=== PATIENT | female | born 1935 | race Caucasian/White ===

== ENCOUNTER → 2016-08-15 | Outpatient (CLI) | payer OTHER, MEDICARE ==
[~2016-08-15] MED LIST: ADVAIR 250-501 EACH INH; ALENDRONATE SOD70 MG PO; ALLER-EASE180 MG PO; ALTACE10 M1 PO; ALTACE10 MG PO; AMBIEN 5 MG TABL5 M1 PO; ASPIRIN325 PO; BENICAR20 MG PO; BYSTOLIC 5 MG5 M1 PO; CALCIUM 500 +1 EAC5 PO; CALCIUM 600 +1 EAC1 PO; CLARITIN10 MG PO; FISH OIL 1,0001 EAC5 PO; FISH OIL 1,001000 M2 PO; FLONASE 0.05%50 MCG NASAL; FOSAMAX 70 MG T70 M1 PO; GENTEAL GEL DRO15 ML OPHTHALMIC; HYDROCODONE-AP1 EAC6 PO; KLOR-CON 1010 MEQ PO; LOPRESSOR 50 MG50 M1 PO; LOPRESSOR100 MG PO; LORTAB 5 MG/5001 TA1 PO; LOVASTAT40 PO; MULTIVITAMINS PO; NEURONTIN 300300 M1 PO; NIASPAN 500 MG500 M1 PO; NORVASC 5 MG TAB5 MG PO; NORVASC5 MG PO; OCUVITE TABLET1 EAC1 PO; PLAVIX 75 MG TA75 M1 PO; PROAIR HFA8.5 GM INH; SPIRIVA INH; TOPROL XL50 MG PO; TRIAMTERENE-HC1 EAC2 PO; TUMS PO; VALIUM5 MG PO; VITAMIN D1000 UNI1 PO; ZANTAC 150MG T150 M1 PO
== END ==
LOC: ULTRA 09:08
DX: E04.1 Nontoxic single thyroid nodule (principal)

== ENCOUNTER → 2017-04-21 | Outpatient (CLI) | payer OTHER, MEDICARE | LOC: RAD 11:07 | DX: M25.551 Pain in right hip (principal); M47.896 Other spondylosis, lumbar region; E04.1 Nontoxic single thyroid nodule ==

== ENCOUNTER → 2018-01-06 | Outpatient (CLI) | payer OTHER, MEDICARE | LOC: ULTRA 10:12 | DX: E04.2 Nontoxic multinodular goiter (principal) ==

== ENCOUNTER → 2018-02-04 | Outpatient (CLI) | payer OTHER, MEDICARE | LOC: MRI 10:52 | DX: M47.22 Other spondylosis with radiculopathy, cervical region (principal); M47.26 Other spondylosis with radiculopathy, lumbar region; M25.78 Osteophyte, vertebrae; M50.122 Cervical disc disorder at C5-C6 level with radiculopathy; M41.83 Other forms of scoliosis, cervicothoracic region; M48.02 Spinal stenosis, cervical region; M71.312 Other bursal cyst, left shoulder ==

== ENCOUNTER → 2018-12-03 | Outpatient (CLI) | payer OTHER, MEDICARE ==
[~2018-12-03] VITALS: Ht 160 cm; Wt 65.2 kg
[~2018-12-03] MED LIST changes: +BENICAR40 MG PO; +BYSTOLIC10 MG PO; +CENTRUM SILVER1 EAC4 PO; +EDARBYCLOR 40-1 EAC1 PO; +FISH OIL 1,0001 EAC9 PO; +FISH OIL 1,2001 EAC4 PO; +FLUTICASONE-SA1 EAC4 INH; +HYDROCODON-ACE1 EAC7 PO; +LOVASTATIN40 MG PO; +OCUVITE ADULT1 EAC1 PO; +PRILOSEC OTC20 MG PO; +SINGULAIR 10 MG10 M1 PO; +VENTOLIN HFA 1818 GM INH
[2018-12-03 14:10] VITALS: BP 181/80
--- NOTE | 2018-12-03 14:31 | NUR ---
Pain Clinic Assessment: 1. History of Osteoarthritis: Left Lower Extremity Right Lower Extremity History of Rheumatoid Arthritis: Not Applicable 2. Height: 5 ft. 3 in. 160.0 cm. Weight: 143.8 lb. oz. 65.227 kg. Patient's BMI: 25.5 3. Vital Signs: BP: 181/80 Pulse: 74 Resp: 16 Temp: 02 Sat: 92 ECG Mon: 4. Pain Intensity: 2-3 5. Fall Risk: Dizziness: N Needs help standing or walking: N Fallen in the last 3 months: N Fall risk comments: 6. Patient on Blood Thinner: None 7. History of Hypertension: Y 8. Opioid Therapy greater than 6 weeks: N Opiate Contract Signed: 08/17/15 9. Risk Assessment Tool Provided: LOW RISK 0/0 10. Functional Assessment Tool: 11. Recreational Drug Use: Never Drug Type: Tobacco Use: Former Smoker Tobacco Type: Cigarettes Amount or Packs/day: 1 How Many Years: 50 Alcohol Use: Yes Frequency: Weekly Quant: 2
--- NOTE | 2018-12-15 09:44 | HPC ---
[facility] [address] [place] [address] PAIN MANAGEMENT CONSULTATION Name: ANKITJOHANNE Panda Room #: REG OSCARPanda Reyes#: [id number] Admission: 12/03/18 Attend Phys: Astrid Snowden MD Discharge: Date of : 34 Report #: [id number] THIS REPORT FOR: //name// CC: Astrid Goins DATE OF SERVICE: 12/03/2018 CHIEF COMPLAINT: Back pain with pain that radiates down into the groin area on the left as well as the right. HISTORY: The patient is an 83-year-old female, who has been referred to the pain clinic for evaluation of pain control. The patient has had back surgery. She had surgery in 2006. She continues to have pain, which has been problematic. She has pain in her hips. She states that she was evaluated by the orthopedic surgeon, Dr. Benitez. Injections in the hip areas were performed. It did not appear that her pain is emanating from her hips. She has used gabapentin in the past. She noticed that this did help somewhat with some tingling in her feet, but did not significantly change the pain she has been having in the pelvis area in the low back. She has been told in the past that she had spinal stenosis. She has undergone physical therapy. She has undergone water exercises as well as land exercises. She finds that the water exercise has afforded her the most benefit. She is able to move better in the water than she does on the land. She has undergone floor exercises. This did increase some of the pain and discomfort she has been having in her left leg. She has some perception of some weakness. She notes that the pain is improved when she sits down. Prolonged walking can be problematic. She describes it as intermittent, aching, and rates it as a 2-3 at this point. It can rise to the level of 7-8 depending on her level of activity. PAST MEDICAL HISTORY: Coronary artery disease, emphysema, diabetes mellitus, hypertension, hyperlipidemia, peripheral vascular disease versus stasis dermatitis, arthritis, bundle branch block, left; and thyroid mass. PAST SURGICAL HISTORY: Cardiac stent in 2000, 2003, and 2007; stents for iliac, bilateral in 2000; cholecystectomy in , appendectomy in 1962, tonsillectomy/adenoidectomy in 5, RCFA, SFA, and profunda endarterectomy with patch, angioplasty in 12/22/2013, lumbar laminectomy in 2006, and right CTR in 2011. CURRENT MEDICATIONS: Azilsartan/chlorthalidone 40/25, fish oil 1000 mg, Singulair 10 mg, fluticasone/salmeterol 250/50, albuterol 2 puffs q.6 hours p.r.n., Ocuvite, Centrum Silver, magnesium, omeprazole, calcium carbonate 600 mg/vitamin D, fish oil 1200 mg b.i.d., Bystolic 10 mg, Norvasc 5 mg, potassium 10 mEq, Advair Diskus 250/50 2 puffs daily, alendronate 70 mg weekly, Spiriva HFA 2 puffs, aspirin 325 mg, Ambien 5 mg for insomnia, Zantac 150 mg b.i.d., [address] [address] PAIN MANAGEMENT CONSULTATION Name: JOHANNE PHAM Panda Room #: REG LAURA Reyes#: [id number] Admission: 12/03/18 Attend Phys: Astrid Snowden MD Discharge: Date of : 34 Report #: [id number] lovastatin 40 mg, and Flonase 0.05% nasal spray. ALLERGIES: POLLEN AND DUST. SOCIAL HISTORY: She has been retired for 14 years. REVIEW OF SYSTEMS: Generally, in good health; eye disease, wears glasses; ringing in the ears, chronic sinus problems, shortness of breath while lying flat, chronic or frequent cough, asthma/wheezing, numbness and tingling, and insomnia. PHYSICAL EXAMINATION: GENERAL: The patient is a well-developed, well-nourished white female. She appears her stated age. She is alert and oriented x 3. Her affect is appropriate. Speech is fluent. HEENT: Normocephalic, atraumatic. Extraocular eye muscles intact. The patient is wearing glasses. NECK: Without JVD. ABDOMEN: Nontender. EXTREMITIES: Upper extremity muscle strength is judged to be 4+/5 for the major muscle groups in the upper extremity. Lower extremity muscle strength is judged to be 5-/5. The patient is without significant kyphosis. The patient has pain in the lower portion of her back from approximately L1 to the sacral area, left and right. The patient has pain that radiates down into the left as well as the right groin area with prolonged standing and walking. She has some discomfort that radiates down in the area of the L2-L3 portion of her left anterior thigh. She uses her hands to go from a sitting to a standing position before starting ambulation. LABORATORY DATA: No new laboratory values are available at the time of our interview. IMPRESSION: 1. Chronic pain with history of spinal stenosis. 2. Coronary artery disease. 3. Emphysema. 4. Diabetes mellitus. 5. Hypertension. 6. Hyperlipidemia. 7. Peripheral vascular disease versus stasis dermatitis. 8. Arthritis. 9. Bundle branch block, left. 10. Thyroid mass. RECOMMENDATIONS: We have discussed the patient's condition. She states that she has used tramadol in the past and this has not been very effective. She has [facility] [address] [place] [address] PAIN MANAGEMENT CONSULTATION Name: JOHANNE PHAM I Room #: REG LAURA Lm.#: [id number] Admission: 12/03/18 Attend Phys: Astrid Snowden MD Discharge: Date of : 34 Report #: [id number] used gabapentin and noticed some improvement in the numbness and tingling in her feet, but continues to have pain and discomfort, which is limiting her ability to ambulate and walk for any distance. The patient has used hydrocodone in the past. She found that this medication was beneficial. She thinks that it might be helpful at this point. We discussed the options. The patient has undergone epidural steroid injections. At this point, she does not feel that these injections would be beneficial at this point, in the past, they have become less effective. She has undergone surgery. She is not a real candidate for surgery at this juncture. We have discussed the risks and benefits of opioid medications. They could cause problems with constipation, mental acuity, and GI upset. The patient has used hydrocodone in the past. She would like to give this medication a try. She has been unable to go on activities with her group. She has been unable to go to the theater because of limitations from her pain. She feels that a trial of the opioid medications would be beneficial and hopefully she will be able to participate in activities of daily living. She is somewhat limited in her ability to ambulate around the nursing facility. She does live in a nursing facility. She lives independently. Walking from one end of the facility to the other can be problematic and limited because of onset of her pain. Hopefully, this medication, hydrocodone 5 mg 1 p.o. up to q.i.d. have been provided. She will call us if she has any concerns. We would like to thank you for letting us to participate in her care. We hope she continues to improve. <ELECTRONICALLY SIGNED> By: Astrid Snowden MD 12/15/18 0944 1550 0248 Astrid Snowden MD /[facility]
== END ==
LOC: PAIN 06:41
DX: R10.9 Unspecified abdominal pain (principal); I25.10 Atherosclerotic heart disease of native coronary artery without angina pectoris; E11.51 Type 2 diabetes mellitus with diabetic peripheral angiopathy without gangrene; I10 Essential (primary) hypertension; E78.5 Hyperlipidemia, unspecified; J43.9 Emphysema, unspecified; M19.90 Unspecified osteoarthritis, unspecified site; Z95.818 Presence of other cardiac implants and grafts; Z90.49 Acquired absence of other specified parts of digestive tract; Z79.899 Other long term (current) drug therapy; Z79.891 Long term (current) use of opiate analgesic; Z79.82 Long term (current) use of aspirin

== ENCOUNTER → 2019-08-22 | Outpatient (CLI) | payer OTHER, MEDICARE | LOC: SJCVCIMAG 11:54 | PROVIDERS: ATTEND Internal Medicine | DX: I08.3 Combined rheumatic disorders of mitral, aortic and tricuspid valves (principal); I65.23 Occlusion and stenosis of bilateral carotid arteries; R94.31 Abnormal electrocardiogram [ECG] [EKG]; I11.9 Hypertensive heart disease without heart failure; I25.10 Atherosclerotic heart disease of native coronary artery without angina pectoris; I44.7 Left bundle-branch block, unspecified; E78.5 Hyperlipidemia, unspecified; I73.9 Peripheral vascular disease, unspecified; E11.9 Type 2 diabetes mellitus without complications; Z79.899 Other long term (current) drug therapy; Z87.891 Personal history of nicotine dependence ==

== ENCOUNTER 2019-11-30 15:59 | Inpatient (IN) | payer OTHER, MEDICARE ==
[~2019-11-30] VITALS: Ht 157.5 cm; Wt 64.4 kg
[2019-11-30 15:59] VITALS: BP 104/57
[2019-11-30 16:32] LABS: BASOPHILS 0.5 % (0.0-2.0); EOSINOPHILS 0.1 % (0.0-3.0); HEMATOCRIT 39.8 % (37.0-47.0); HEMOGLOBIN 13.9 gm/dL (12.0-15.0); MCH 30.7 pg (26.0-34.0); MCV 87.9 fL (80.0-100.0); MONOCYTES 8.6 % (1.0-8.0); PLATELET COUNT 316 thou/uL (150-400); POLYS 74.8 % (36.0-66.0); RBC 4.53 mil/uL (4.20-5.00); RDW 13.2 % (10.5-14.5); WBC 9.3 thou/uL (4.0-11.0)
[2019-11-30 16:41] LABS: CALCIUM 9.2 mg/dL (8.5-10.1); CREATININE 0.9 mg/dL (0.6-1.0); POTASSIUM 3.7 mmol/L (3.5-5.1)
[2019-12-01] VITALS (8 sets, daily range): BP systolic 12–140; BP diastolic 58–77
[2019-12-01 06:36] LABS: HEMATOCRIT 40.4 % (37.0-47.0); MCH 30.8 pg (26.0-34.0); MCHC 34.5 g/dL (28.0-37.0); MCV 89.3 fL (80.0-100.0); RBC 4.53 mil/uL (4.20-5.00); RDW 12.8 % (10.5-14.5); WBC 11.5 thou/uL (4.0-11.0)
--- NOTE | 2019-12-01 06:36 | NUR ---
PT'S DAUGHTER UPDATED ON POC.
[2019-12-01 06:51] LABS: ALBUMIN 3.6 g/dL (3.4-5.0); CALCIUM 8.5 mg/dL (8.5-10.1); CREATININE 0.7 mg/dL (0.6-1.0); PHOSPHORUS 3.7 mg/dL (2.5-4.9); POTASSIUM 3.6 mmol/L (3.5-5.1)
--- NOTE | 2019-12-01 07:37 | EKG ---
[facility] [place] [address] ELECTROCARDIOGRAM REPORT Name: JOHANNE PHAM I Room #: 170-8 ADM IN M.R.#: [id number] Admission: 11/30/19 Attend Phys: Gualberto Milian Discharge: Date of : 34 Report #: [id number] THIS REPORT FOR: cc: Heriberto Goins MD, Rene P. 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
[2019-12-01 16:18] LABS: HEMATOCRIT 38.9 % (37.0-47.0); HEMOGLOBIN 12.9 gm/dL (12.0-15.0); MCH 29.7 pg (26.0-34.0); MCHC 33.2 g/dL (28.0-37.0); MCV 89.2 fL (80.0-100.0); RBC 4.36 mil/uL (4.20-5.00); WBC 19.4 thou/uL (4.0-11.0)
[2019-12-01 16:28] LABS: CALCIUM 8.3 mg/dL (8.5-10.1); CREATININE 0.8 mg/dL (0.6-1.0); POTASSIUM 3.5 mmol/L (3.5-5.1)
--- NOTE | 2019-12-01 18:43 | NUR ---
PT ADMITTED TO ROOM 364 ABOUT 1400, PT HAS SURGRY TX SUBTROCH WITH IM NAIL FOR R FEMUR FRACTURE, PT IS A&OX3 , PT IS O2 4L/MIN/NC , PT'S VS ARE STABLE, PT'S R LE SURGICAL AREA DRESSING IS CDI , RN HAS CALLED DR TO REPORT PT'S N/V ( 2 TIME VIMIT COFFEE COLOR ) , NEW ORDER GI COSULT , NPO AND PANTOPRAZOLE 40MG IV Q12HE, PT IS CONTINUING NS @ 125ML/HR, PT HAS VOID RUINE 400ML . PT DENIES PAIN AT THIS TIME.
--- NOTE | 2019-12-01 23:15 | NUR ---
PT RESTING IN BED ALERT WATCHING TV. IVF INTACT. R HIP DRESSING DRY INTACT, ICE PACK PRN. O2 PER NC. PT PROVIDED PRN FOR PAIN AND NAUSEA RELIEF. PT CALLED HER DAUGHTER. PT PASSING GAS ABD DISTENDED BS DECREASED. EXT FEMALE CATHETER INTACT. PT ASSISTING WITH REPOSITIONING. BED ALARM ON.
[2019-12-02 00:06] VITALS: BP 98/56
--- NOTE | 2019-12-02 03:49 | NUR ---
PT NOTED TO HAVE TEMP 99. PT OFFERED FLUIDS AND DECLINED.
[2019-12-02 04:39] VITALS: BP 125/66
[2019-12-02 06:10] LABS: HEMATOCRIT 33.3 % (37.0-47.0); HEMOGLOBIN 11.6 gm/dL (12.0-15.0); MCH 30.8 pg (26.0-34.0); MCHC 34.9 g/dL (28.0-37.0); MCV 88.5 fL (80.0-100.0); RBC 3.76 mil/uL (4.20-5.00); RDW 12.9 % (10.5-14.5); WBC 7.9 thou/uL (4.0-11.0)
[2019-12-02 06:24] LABS: ALBUMIN 2.9 g/dL (3.4-5.0); CALCIUM 8.3 mg/dL (8.5-10.1); CREATININE 0.7 mg/dL (0.6-1.0); PHOSPHORUS 3.2 mg/dL (2.5-4.9); POTASSIUM 3.6 mmol/L (3.5-5.1)
[2019-12-02 09:10] VITALS: BP 94/52
--- NOTE | 2019-12-02 09:53 | O ---
[facility] [place] [address] OPERATIVE REPORT Name: JOHANNE PHAM I Room #: 364-P [facility] IN M.R.#: [id number] Admission: 11/30/19 Attend Phys: Gualberto Milian Discharge: Date of : 34 Report #: [id number] THIS REPORT FOR: cc: Heriberto Goins MD, Rene P. MD Abraham, Scott M. MD ~ CC: Gualberto Goins DATE OF SERVICE: 12/01/2019 PREOPERATIVE DIAGNOSIS: Right subtrochanteric femur fracture. POSTOPERATIVE DIAGNOSIS: Right subtrochanteric femur fracture. PROCEDURE: Treatment of right subtroch femur fracture with IM nail. SURGEON: Kenny Benitez MD. SLATE PICKER: Cammie Bender PA-C. INDICATIONS FOR SLATE PICKER: Throughout the case, extensive retraction as well as reduction of the fracture was required. This was afforded to me by my secretary administrative assistant. ANESTHESIA: General. IMPLANTS: [employer] size 11.5 x 34 InterTan nail with a size 90 proximal lock screw and a size 37.5 and 40 distal locking screws. ESTIMATED BLOOD LOSS: 25 mL. COMPLICATIONS: None. SPECIMENS: None. CONDITION UPON LEAVING THE OPERATING ROOM: Stable. INDICATIONS FOR PROCEDURE: The patient is an 84-year-old female who fell and sustained a right subtrochanteric femur fracture. After discussion with her, she elected for treatment with an IM nail. DESCRIPTION OF PROCEDURE: Risks, benefits, alternatives, complications were discussed in detail with the patient including but not limited to risk of anesthesia, risk of damage to nerves, arteries, blood vessels, risk for infection, bleeding, risk for continued hip pain, malunion, nonunion and need [facility] [address] [place] [address] OPERATIVE REPORT Name: JOHANNE PHAM I Room #: 364-P [facility] IN .R.#: [id number] Admission: 11/30/19 Attend Phys: Gualberto Milian Discharge: Date of : 34 Report #: [id number] for reoperation. Informed consent was obtained from the patient. Right hip was appropriately marked in the preoperative holding area. She was brought to the operating room and general anesthesia was induced without complication. She was then transferred to the [place] table. Right lower extremity was placed in traction, left lower extremity was scissored. Timeout was performed properly identifying the patient and procedure as well as the instrumentation and implants. All in the operating room were in agreement. A 2-inch incision proximal to the tip of greater trochanter was made with 10 blade through the skin and fascia. Threaded tip guidewire was placed on the tip of the greater trochanter and taken down to the level of the lesser trochanter under AP and lateral imaging. An entry portal reamer was used to ream the entry portal and the reduction tool was then passed down the intramedullary canal and the femur across the fracture site, which was held reduced by my secretary administrative assistant. The ball tip guidewire was then passed and the length of the nail was measured and found to be a 34. The femoral canal was then sequentially reamed up to a size 13, at which point, there was good feedback of the reamer. A size 11.5 x 34 InterTan nail was then placed down across the fracture site. While placing the nail traction was let off from the right leg and the fracture reduced very nicely. The nail was seated to the appropriate level and the threaded tip guidewire was taken up into the femoral head for placement of the cephalomedullary screw. The screw was measured and found to be a size 90. This was then ____ and a size 90 screw was placed and seated and locked from above. Outrigger was removed. Two distal locking screws were placed using a perfect afognak technique, the proximal screw was 37.5 mm and the distal screw was 40 mm. After this, final fluoroscopic images were taken to verify adequate fracture reduction and placement of hardware as was the case. The wounds were thoroughly irrigated with normal saline and closed with 2-0 Vicryl and skin hortencia. Soft dressing was applied. The patient tolerated this procedure well and went to recovery room under care of anesthesia postoperatively. <ELECTRONICALLY SIGNED> By: Kenny Benitez MD 12/02/19 0953 1835 1845 Kenny Benitez MD /nt
--- NOTE | 2019-12-02 13:02 | NUR ---
INITIAL ASSESSMENT: Received consult. VIGNESH reviewed chart and spoke with nursing and attending physician. Pt was admitted from [facility] after sustaining femur fracture due to a fall in her apt. Pt is in Enhanced Isolation due to COVID-19. Pt had COVID test prior to surgery. Pt is afebrile and on O2. Pt is on IV abx. GI consulted today due to possible GI bleed. VIGNESH spoke with pt via phone. Introduced role of SW. Pt is alert/orientated x 4. Pt states she lives alone in her apt. Prior to admission, pt was using a cane in her apt and a walker outside of her apt. Meals have been brought to her apt since November 23. Prior to that, pt was eating meals in the dining room. Pt has not used HH in the past. Pt's PCP is Dr. Goins. VIGNESH discussed discharge needs: post-acute placement. Pt requests referral to be sent to [facility]. VIGNESH faxed referral/COVID test results to [facility] and spoke with Cristina in admissions. [facility] does have COVID in the SNF and they are able to accept pt. [facility] requests no weekend discharge. VIGNESH spoke with pt's dtr, Alexia ([phone]) via phone to provide update and discuss discharge plan. Alexia is aware and in agreement with plan. VIGNESH is following to assist as needed with discharge planning.
--- NOTE | 2019-12-02 16:12 | NUR ---
PT CARE ASSUMED AT 0700, PT ALERT AND ORIENTED X4, DENIES ANY CHEST PAIN, NAUSEA AND VOMITTING. PT IS ON 3L OF OXYGEN, NO SIGNS OF DISTRESS NOTED. PT UP IN CHAIR WITH 1 ASSIST. PT ABLE TO TURN HERSLEF IN BED. FALL PRECAUTION IN PLACE. BED AT LOWEST LEVELW TIH ALARM ON. PT PROGRESSING TOWARDS POC.
[2019-12-02 16:41] VITALS: BP 123/43
[2019-12-02 20:03] VITALS: BP 116/64
--- NOTE | 2019-12-02 23:04 | NUR ---
PT RESTING IN BED WATCHING TV. SMILING. O2 PER NC. PT DENIES DISCOMFORT, REPORTED UP IN CHAIR FOR SEVERAL HOURS WITH THE ASSISTANCE OF PT. R HIP DRESSING DRY AND INTACT, POSITIVE CIRCUALTION CHECK. PT PROVIDED PRN FOR SLEEP.
[2019-12-03 04:19] VITALS: BP 126/69
[2019-12-03 06:07] LABS: HEMATOCRIT 29.1 % (37.0-47.0); HEMOGLOBIN 9.9 gm/dL (12.0-15.0); MCH 30.7 pg (26.0-34.0); MCHC 34.1 g/dL (28.0-37.0); MCV 90.2 fL (80.0-100.0); RBC 3.23 mil/uL (4.20-5.00); RDW 12.9 % (10.5-14.5)
[2019-12-03 06:49] LABS: ALBUMIN 2.7 g/dL (3.4-5.0); CALCIUM 8.3 mg/dL (8.5-10.1); CREATININE 0.6 mg/dL (0.6-1.0); PHOSPHORUS 2.4 mg/dL (2.5-4.9); POTASSIUM 3.8 mmol/L (3.5-5.1)
[2019-12-03 08:12] VITALS: BP 133/61
[2019-12-03 15:38] VITALS: BP 104/55
--- NOTE | 2019-12-03 17:54 | NUR ---
PT CARE ASSUMED AT 0700, PT ALERT AND ORIENTED X4, DENIES ANY CHEST PAIN, NAUSEA AND VOMITTING. PT IS ON 2L OF OXYGEN RIGHT NOW, NO SIGNS OF DISTRESS NOTED. PT UP TO CHAIR WITH ONE ASSIST. PT DENIES ANY PAIN. FALL PRECAUTIONS IN PLACE, CALL LIGHT AND TABLE WITHIN REACH. BED AT LOWEST LEVEL WITH ALARM ON PT CONTINUES TO BE ON CLEAR LIQUID DIET, PT HAS BEEN DRINGKING BROTH AND SPIRIT. PT PROGRESSING TOWARDS CARE.
[2019-12-03 20:30] VITALS: BP 110/56
--- NOTE | 2019-12-04 03:24 | NUR ---
Patient making slow progress towards outcome goals. Vital signs stable. High fall risks, fall precautions in place. Hip dressing dry and intact. Incontinent of urine, external female catheter replaced once and currently in place draining yellow urine.
[2019-12-04 08:33] VITALS: BP 107/42
[2019-12-04 09:10] VITALS: BP 135/62
[2019-12-04 15:07] VITALS: BP 95/52
--- NOTE | 2019-12-04 16:43 | NUR ---
PT CARE ASSUMED AT 0700, PT ALERT AND ORIENTED X4, PT DENIES ANY PAIN, NAUSEA AND VOMITTING. PT IS ON ROOM AIR NOW AND TOLERATING IT WELL. NO SIGNS OF DISTRESS NOTED. PT WAS UP IN THE CHAIR FOR Z COUPLE OF HOURS TODAY. UP WITH PARMINDER T TO BEDSIDE COMMODE. FALL PRECAUTION IN PLACE. DENIES ANY NEEDS LUIS. WILL CONTINUE TO MONITOR.
[2019-12-04 19:40] VITALS: BP 128/49
[2019-12-05 03:59] VITALS: BP 135/63
--- NOTE | 2019-12-05 04:58 | NUR ---
Took over care of pt. after 2300. She slept well during the night. She woke up stating she had a vivid dream that people are around her but she's afraid to tell them she is in the COVID unit. She verbalized she had taken ambien to help her sleep but never had problems with it. Denies any pain. Up with assist to commode x1 and voided while she's up otherwise periods of incontinence at HS. Cont. on enhanced precaution , afebrile. Dressing intact on right hip.
[2019-12-05 06:15] VITALS: BP 97/51
[2019-12-05 08:17] VITALS: BP 97/51
[2019-12-05] MEDS ORDERED: HYDROCODON-ACE1 EAC7 PO (09:11)
--- NOTE | 2019-12-05 15:29 | NUR ---
DISCHARGE NOTE: VIGNESH reviewed chart and spoke with nursing and attending physician. Pt remains in Enhanced Isolation due to COVID-19. Pt is afebrile and not requiring O2. Pt is medically stable to discharge to [facility] today. VIGNESH faxed clinical updates and discharge orders/summary to [facility] for review. Confirmed info was received with Cristina in admissions. Pt to be admitted to their COVID unit at the facility. [facility] does not require an additional test prior to discharge. W/c van transportation scheduled for 1400 via [employer] per facility's arrangements. SW spoke with pt via phone to discuss discharge plan. Pt is aware and in agreement with plan. Pt verbalized understanding that she will need to be in isolation upon returning to the facility. VIGNESH spoke with pt's dtr, Alexia, to provide update and notify of discharge plan. Alexia will notify her brother, Daniel, of pt's discharge. Chart copy requested. Nursing provided with number to call report. No additional SW needs identified at this time, but is available to assist should needs arise.
== END 2019-12-05 14:29 | DRG 981 ==
LOC: ER 15:59 → 3W 17:57 → EROBS 17:57 → TBA 12-01 11:30 → 3W 12-01 13:46
PROVIDERS: Nurse Practitioner; Orthopaedic Surgery; ADMIT Hospitalist; ATTEND Hospitalist
PROC: 0QS606Z Reposition Right Upper Femur with Intramedullary Internal Fixation Device, Open Approach (ICD-10-PCS; principal; 2019-12-01)
DX: U07.1 COVID-19 (principal); S72.21XA Displaced subtrochanteric fracture of right femur, initial encounter for closed fracture; E87.1 Hypo-osmolality and hyponatremia; K92.0 Hematemesis; K92.1 Melena; W18.39XA Other fall on same level, initial encounter; R53.1 Weakness; E86.1 Hypovolemia; K57.30 Diverticulosis of large intestine without perforation or abscess without bleeding; I10 Essential (primary) hypertension; M81.0 Age-related osteoporosis without current pathological fracture; D64.9 Anemia, unspecified; Z90.49 Acquired absence of other specified parts of digestive tract; Z95.5 Presence of coronary angioplasty implant and graft; Z79.899 Other long term (current) drug therapy; Z88.8 Allergy status to other drugs, medicaments and biological substances; Z87.891 Personal history of nicotine dependence; Y93.89 Activity, other specified; Y92.89 Other specified places as the place of occurrence of the external cause; Y99.8 Other external cause status
CPT/HCPCS: 10080; 50101; 50386; 51412; 51538; 52304; 56524; 57092; 57095; 57502; 57506; 57507; 57980; 58335; 58336; 62110; 62900

== ENCOUNTER → 2020-02-29 | Outpatient (CLI) | payer OTHER, MEDICARE | LOC: SJCVC 11:04 | PROVIDERS: ATTEND Internal Medicine | DX: R94.31 Abnormal electrocardiogram [ECG] [EKG] (principal); I44.7 Left bundle-branch block, unspecified; I25.10 Atherosclerotic heart disease of native coronary artery without angina pectoris; I65.23 Occlusion and stenosis of bilateral carotid arteries; I10 Essential (primary) hypertension; E78.5 Hyperlipidemia, unspecified; I73.9 Peripheral vascular disease, unspecified; E11.9 Type 2 diabetes mellitus without complications; K21.9 Gastro-esophageal reflux disease without esophagitis; E78.2 Mixed hyperlipidemia; Z98.61 Coronary angioplasty status; Z79.82 Long term (current) use of aspirin; Z79.899 Other long term (current) drug therapy; Z87.891 Personal history of nicotine dependence ==

== ENCOUNTER → 2020-08-29 | Outpatient (CLI) | payer OTHER, MEDICARE | LOC: SJCVC 12:43 | PROVIDERS: ATTEND Internal Medicine | DX: R94.31 Abnormal electrocardiogram [ECG] [EKG] (principal); I45.4 Nonspecific intraventricular block; I25.10 Atherosclerotic heart disease of native coronary artery without angina pectoris; I65.23 Occlusion and stenosis of bilateral carotid arteries; I10 Essential (primary) hypertension; I44.7 Left bundle-branch block, unspecified; E78.5 Hyperlipidemia, unspecified; I73.9 Peripheral vascular disease, unspecified; J44.9 Chronic obstructive pulmonary disease, unspecified; K21.9 Gastro-esophageal reflux disease without esophagitis; M81.0 Age-related osteoporosis without current pathological fracture; E11.51 Type 2 diabetes mellitus with diabetic peripheral angiopathy without gangrene; Z95.828 Presence of other vascular implants and grafts; Z98.890 Other specified postprocedural states; Z90.49 Acquired absence of other specified parts of digestive tract; Z98.61 Coronary angioplasty status; Z88.8 Allergy status to other drugs, medicaments and biological substances; Z79.82 Long term (current) use of aspirin; Z79.899 Other long term (current) drug therapy; Z87.891 Personal history of nicotine dependence; Z82.49 Family history of ischemic heart disease and other diseases of the circulatory system ==

== ENCOUNTER → 2021-03-01 | Outpatient (CLI) | payer OTHER, MEDICARE | LOC: SJCVCIMAG 09:09 | PROVIDERS: ATTEND Internal Medicine | DX: I65.23 Occlusion and stenosis of bilateral carotid arteries (principal); E04.1 Nontoxic single thyroid nodule; I08.3 Combined rheumatic disorders of mitral, aortic and tricuspid valves; R94.31 Abnormal electrocardiogram [ECG] [EKG]; I45.4 Nonspecific intraventricular block; I25.10 Atherosclerotic heart disease of native coronary artery without angina pectoris; I10 Essential (primary) hypertension; I44.7 Left bundle-branch block, unspecified; E78.5 Hyperlipidemia, unspecified; I73.9 Peripheral vascular disease, unspecified; E11.9 Type 2 diabetes mellitus without complications; J44.9 Chronic obstructive pulmonary disease, unspecified; K21.9 Gastro-esophageal reflux disease without esophagitis; M54.16 Radiculopathy, lumbar region; M81.0 Age-related osteoporosis without current pathological fracture; M71.38 Other bursal cyst, other site; Z86.16 Personal history of COVID-19; Z87.891 Personal history of nicotine dependence; Z72.89 Other problems related to lifestyle; Z79.82 Long term (current) use of aspirin; Z79.899 Other long term (current) drug therapy; Z88.8 Allergy status to other drugs, medicaments and biological substances ==